=== PATIENT | female | born 1990 | race Caucasian/White ===

== ENCOUNTER → 2017-05-03 | Outpatient (CLI) | payer OTHER | LOC: BMCIMAGING 08:57 | PROVIDERS: ATTEND Family Medicine | DX: E01.0 Iodine-deficiency related diffuse (endemic) goiter (principal); E04.1 Nontoxic single thyroid nodule | CPT/HCPCS: 76536-PO ==

== ENCOUNTER → 2017-12-14 | Outpatient (CLI) | payer OTHER ==
[~2017-12-14] MED LIST: IOPAMIDOL (ISOVUE-300) 100 ML BTL ONE
== END ==
LOC: FIMAGING 16:27
PROVIDERS: ATTEND Family Medicine
DX: R51 Headache (principal)
CPT/HCPCS: Q9967